=== PATIENT | female | born 1950 | race Caucasian/White ===

== ENCOUNTER 2021-03-17 18:25 | Emergency (ER) | payer MEDICARE ==
[~2021-03-17] VITALS: Ht 157.5 cm; Wt 92.1 kg
[2021-03-17 19:38] LABS: CLARITY,URINE CLEAR (CLEAR); COLOR,URINE YELLOW (YELLOW); KETONES,URINE NEGATIVE (NEGATIVE); LEUKOCYTE ESTERASE ,URINE NEGATIVE (NEGATIVE); NITRITE,URINE NEGATIVE (NEGATIVE); PROTEIN,URINE DIPSTICK NEGATIVE (NEGATIVE); URINE UROBILINOGEN 0.2 mg/dL (0.2 - 1)
[2021-03-17 19:49] LABS: BASOPHILS # (AUTO) 0.1 (0.0-0.1); BASOPHILS % 0.8 % (0.0-1.0); EOSINOPHILS # (AUTO) 0.1 (0.0-0.4); EOSINOPHILS % 1.7 % (0.0-6.0); HEMATOCRIT 45.5 % (34.2-44.1); HEMOGLOBIN 14.1 g/dL (12.0-16.0); LYMPHOCYTES # (AUTO) 1.6 (1.0-3.2); MEAN CORPUSCULAR HEMOGLOBIN 25.8 pg (28-32); MEAN CORPUSCULAR VOLUME 83.3 fL (81-99); MONOCYTES % 15.6 % (4.4-11.3); NEUTROPHILS # (AUTO) 3.7 (2.1-6.9); NEUTROPHILS % 56.6 % (38.7-80.0); PLATELET COUNT 234 x10e3/uL (140-360); RED BLOOD COUNT 5.46 x10e6/uL (3.6-5.1); RED CELL DISTRIBUTION WIDTH 16.7 % (11.7-14.4)
[2021-03-17 19:58] LABS: BACTERIA,URINE RARE /HPF; EPITHELIAL CELLS,URINE RARE /LPF; RBC,URINE 0-5 /HPF (0-5); WBC,URINE (MAN) 0-5 /HPF (0-5)
[2021-03-17 20:00] LABS: INR 1.59; PARTIAL THROMBOPLASTIN TIME 34.6 seconds (23.8-35.5); PROTHROMBIN TIME 19.7 seconds (11.9-14.5)
[2021-03-17] MEDS ORDERED: METOPROLOL TARTRATE INJ 1 MG/ML VIAL IV NR (20:00)
[2021-03-17 20:07] LABS: ALBUMIN 3.5 g/dL (3.5-5.0); ALBUMIN/GLOBULIN RATIO 0.9 (0.8-2.0); CREATININE, SERUM 1.27 mg/dL (0.57-1.11)
[2021-03-17 20:47] LABS: FREE THYROXINE INDEX 2.7434 (1.4-3.8); THYROID STIMULATING HORMONE 2.886 uIU/mL (0.350-4.940)
[2021-03-17] MEDS ORDERED: DILTIAZEM HCL 5 MG/ML 5 ML VIAL IV STA (21:25)
== END 2021-03-17 22:40 | disposition home or self-care (01) ==
LOC: ER 18:48
DX: I48.91 Unspecified atrial fibrillation (principal); R94.31 Abnormal electrocardiogram [ECG] [EKG]; I10 Essential (primary) hypertension; E11.9 Type 2 diabetes mellitus without complications; E78.5 Hyperlipidemia, unspecified; I25.10 Atherosclerotic heart disease of native coronary artery without angina pectoris; Z86.73 Personal history of transient ischemic attack (TIA), and cerebral infarction without residual deficits; Z95.1 Presence of aortocoronary bypass graft
CPT/HCPCS: 36415; 71045; 80053; 81001; 82550; 82553; 83880; 84436; 84443; 84479; 84484; 85025; 85610; 85730; 93005; 99284; U0002

== ENCOUNTER 2021-08-17 08:05 | Inpatient (IN) | payer MEDICARE ==
[~2021-08-17] VITALS: Ht 157.5 cm; Wt 90.7 kg
[2021-08-17] MEDS ORDERED: DILTIAZEM HCL 180 MG CAP ER PO STA (08:34)
[2021-08-17] MEDS ORDERED: METOPROLOL TARTRATE 50 MG TAB PO ONE (08:45)
[2021-08-17] MEDS ORDERED: HYDROCODONE/APAP 5MG-325MG TAB PO ONE (09:30)
[2021-08-17] MEDS ORDERED: SODIUM CHLORIDE 0.9% 1000ML 1,000 ML IV SCH ×2 (10:30→11:45)
[2021-08-17] MEDS ORDERED: ADENOSINE 6 MG/2 ML VIAL IV ONE (10:30)
[2021-08-17 11:07] LABS: BASOPHILS # (AUTO) 0.1 (0.0-0.1); BASOPHILS % 0.5 % (0.0-1.0); EOSINOPHILS # (AUTO) 0.2 (0.0-0.4); EOSINOPHILS % 1.4 % (0.0-6.0); HEMATOCRIT 47.7 % (34.2-44.1); LYMPHOCYTES % 16.1 % (18.0-39.1); MEAN CORPUSCULAR HEMOGLOBIN 27.7 pg (28-32); MEAN CORPUSCULAR HGB CONC 31.4 g/dL (31-35); MEAN CORPUSCULAR VOLUME 88.2 fL (81-99); MONOCYTES # (AUTO) 1.5 (0.2-0.8); MONOCYTES % 11.9 % (4.4-11.3); NEUTROPHILS # (AUTO) 8.5 (2.1-6.9); NEUTROPHILS % 69.6 % (38.7-80.0); PLATELET COUNT 200 x10e3/uL (140-360); RED BLOOD COUNT 5.41 x10e6/uL (3.6-5.1); RED CELL DISTRIBUTION WIDTH 19.9 % (11.7-14.4)
[2021-08-17] MEDS ORDERED: ADENOSINE 6MG/2ML 0 ML ONE (11:11)
[2021-08-17] MEDS ORDERED: DILTIAZEM HCL IV 5MG/ML 25 ML VIAL ONE (11:12)
[2021-08-17] MEDS ORDERED: DILTIAZEM HCL 5 MG/ML 5 ML VIAL IV ONE (11:15)
[2021-08-17 11:25] LABS: INR 2.3; PROTHROMBIN TIME 27.1 seconds (11.9-14.5)
[2021-08-17 11:35] LABS: ALBUMIN 3.3 g/dL (3.5-5.0); ALBUMIN/GLOBULIN RATIO 0.8 (0.8-2.0); ANION GAP 18.2 mmol/L (8-16); CALCIUM 9.5 mg/dL (8.4-10.2); CREATININE, SERUM 1.28 mg/dL (0.57-1.11); POTASSIUM 4.2 mmol/L (3.5-5.1)
[2021-08-17] MEDS ORDERED: SENNA LAX8.6 MG PO (11:57)
[2021-08-17] MEDS ORDERED: ASPIRIN81 MG PO (11:57)
[2021-08-17] MEDS ORDERED: PATANASE30.5 GM OU (11:57)
[2021-08-17] MEDS ORDERED: CITRACAL-D3 MA1 EACH PO (11:57)
[2021-08-17] MEDS ORDERED: LIPITOR20 MG PO (11:57)
[2021-08-17] MEDS ORDERED: JARDIANCE10 MG PO (11:57)
[2021-08-17] MEDS ORDERED: WARFARIN SODIU2.5 MG PO (11:57)
[2021-08-17] MEDS ORDERED: BENAZEPRIL HCL10 MG PO (11:57)
[2021-08-17] MEDS ORDERED: CYMBALTA30 MG PO (11:57)
[2021-08-17] MEDS ORDERED: ARICEPT10 MG PO (11:57)
[2021-08-17] MEDS ORDERED: BASAGLAR K100 UNIT/1 SQ (11:57)
[2021-08-17] MEDS ORDERED: FLONASE ALLERG9.9 ML INH (11:57)
[2021-08-17] MEDS ORDERED: PANTOPRAZOLE SO40 MG PO (11:57)
[2021-08-17] MEDS ORDERED: DEPAKOTE ER500 MG PO (11:57)
[2021-08-17] MEDS ORDERED: NOVOLOG100 UNIT/1 SC (11:57)
[2021-08-17] MEDS ORDERED: METOPROLOL TART50 MG PO (11:57)
[2021-08-17] MEDS ORDERED: LASIX20 MG PO (11:57)
[2021-08-17] MEDS ORDERED: ATROVENT HFA12.9 GM INH (11:57)
[2021-08-17] MEDS ORDERED: DILTIAZEM 24HR180 MG PO (11:57)
[2021-08-17] MEDS ORDERED: LEVOTHYROXINE75 MCG PO (11:57)
[2021-08-17 12:37] VITALS: BP 130/58
[2021-08-17 13:17] VITALS: BP 141/86
[2021-08-17 15:03] VITALS: BP 141/86
[2021-08-17] MEDS: METOPROLOL TARTRATE 50 MG TAB PO SCH (16:37)
[2021-08-17] MEDS ORDERED: SENNOSIDES 8.6 MG TAB PO PRN (16:45)
[2021-08-17] MEDS ORDERED: DEXTROSE 50% SYRINGE 50 ML IV PRN (16:45)
[2021-08-17] MEDS ORDERED: METOPROLOL TARTRATE 50 MG TAB PO SCH (17:00)
[2021-08-17 17:03] VITALS: BP 152/91
[2021-08-17] MEDS ORDERED: DIGOXIN INJ 0.25 MG/ML 2 ML AMP IV ONE (17:15)
[2021-08-17] MEDS: Morphine 4mg Syringe 4 MG/ML INJ IV PRN (17:50)
[2021-08-17] MEDS: ONDANSETRON HCL INJ 2MG/ML 2ML 2 MG/ML VIAL IV PRN (17:50)
[2021-08-17] MEDS: DEPAKOTE DELAYED-RELEASE TAB 500 MG PO SCH (17:52)
[2021-08-17 20:17] VITALS: BP 127/90
[2021-08-17] MEDS: ATORVASTATIN 40 MG TAB PO SCH (20:37)
[2021-08-17] MEDS: DONEPEZIL HCL 5 MG TAB PO SCH (20:37)
[2021-08-17] MEDS: INSULIN GLARGINE 100 UNITS/ML VIAL SQ SCH (20:39)
[2021-08-17] MEDS: INSULIN LISPRO 100 UNIT/1 ML 3ML VIAL SQ SCH ×2 (20:39→20:40)
[2021-08-17 21:00] VITALS: BP 127/90
[2021-08-18] VITALS (8 sets, daily range): BP systolic 128–157; BP diastolic 87–118
[2021-08-18] MEDS: METOPROLOL TARTRATE 50 MG TAB PO SCH ×5 (03:49→17:14)
[2021-08-18] MEDS: LEVOTHYROXINE SODIUM 75 MCG TAB PO SCH (04:58)
[2021-08-18 06:06] LABS: BASOPHILS % 0.3 % (0.0-1.0); EOSINOPHILS # (AUTO) 0.3 (0.0-0.4); EOSINOPHILS % 2.1 % (0.0-6.0); HEMATOCRIT 44.6 % (34.2-44.1); HEMOGLOBIN 14.2 g/dL (12.0-16.0); LYMPHOCYTES # (AUTO) 1.9 (1.0-3.2); LYMPHOCYTES % 15.6 % (18.0-39.1); MEAN CORPUSCULAR HEMOGLOBIN 27.7 pg (28-32); MEAN CORPUSCULAR HGB CONC 31.8 g/dL (31-35); MEAN CORPUSCULAR VOLUME 86.9 fL (81-99); MONOCYTES # (AUTO) 1.5 (0.2-0.8); MONOCYTES % 11.7 % (4.4-11.3); NEUTROPHILS # (AUTO) 8.7 (2.1-6.9); NEUTROPHILS % 69.6 % (38.7-80.0); PLATELET COUNT 210 x10e3/uL (140-360); RED BLOOD COUNT 5.13 x10e6/uL (3.6-5.1); RED CELL DISTRIBUTION WIDTH 19.9 % (11.7-14.4)
[2021-08-18 06:09] LABS: CALCIUM 8.9 mg/dL (8.4-10.2); CREATININE, SERUM 1.14 mg/dL (0.57-1.11); INR 2.3; PROTHROMBIN TIME 27.1 seconds (11.9-14.5)
[2021-08-18] MEDS: INSULIN LISPRO 100 UNIT/1 ML 3ML VIAL SQ SCH ×8 (07:30→20:44)
[2021-08-18] MEDS: ASPIRIN 81 MG CHEW TAB PO SCH (08:09)
[2021-08-18] MEDS: DULOXETINE HCL 30 MG DELAYED RELEASE PO SCH (08:09)
[2021-08-18] MEDS: PANTOPRAZOLE SOD 40 MG TABEC PO SCH (08:10)
[2021-08-18] MEDS: FUROSEMIDE 20 MG TAB PO SCH (08:10)
[2021-08-18] MEDS: DEPAKOTE DELAYED-RELEASE TAB 500 MG PO SCH ×2 (08:11→16:17)
[2021-08-18] MEDS: DILTIAZEM HCL 180 MG CAP ER PO SCH (08:23)
[2021-08-18] MEDS: WARFARIN SOD 2 MG TAB PO SCH (16:17)
[2021-08-18] MEDS: ONDANSETRON HCL INJ 2MG/ML 2ML 2 MG/ML VIAL IV PRN (20:00)
[2021-08-18] MEDS: Morphine 4mg Syringe 4 MG/ML INJ IV PRN (20:00)
[2021-08-18] MEDS: ATORVASTATIN 40 MG TAB PO SCH (20:44)
[2021-08-18] MEDS: DONEPEZIL HCL 5 MG TAB PO SCH (20:44)
[2021-08-18] MEDS ORDERED: TRAMADOL HCL 50 MG TAB PO PRN (20:45)
[2021-08-18] MEDS: INSULIN GLARGINE 100 UNITS/ML VIAL SQ SCH (20:45)
[2021-08-19] VITALS (9 sets, daily range): BP systolic 95–140; BP diastolic 64–92
[2021-08-19] MEDS: METOPROLOL TARTRATE 50 MG TAB PO SCH ×4 (00:25→17:16)
[2021-08-19 05:03] LABS: BASOPHILS % 0.4 % (0.0-1.0); EOSINOPHILS # (AUTO) 0.4 (0.0-0.4); EOSINOPHILS % 3.8 % (0.0-6.0); HEMOGLOBIN 13.9 g/dL (12.0-16.0); LYMPHOCYTES # (AUTO) 2.6 (1.0-3.2); LYMPHOCYTES % 27.9 % (18.0-39.1); MEAN CORPUSCULAR HEMOGLOBIN 28.1 pg (28-32); MEAN CORPUSCULAR HGB CONC 31.6 g/dL (31-35); MEAN CORPUSCULAR VOLUME 89.1 fL (81-99); MONOCYTES # (AUTO) 1.3 (0.2-0.8); MONOCYTES % 14.1 % (4.4-11.3); NEUTROPHILS # (AUTO) 4.9 (2.1-6.9); NEUTROPHILS % 53.4 % (38.7-80.0); PLATELET COUNT 181 x10e3/uL (140-360); RED BLOOD COUNT 4.94 x10e6/uL (3.6-5.1); RED CELL DISTRIBUTION WIDTH 19.6 % (11.7-14.4)
[2021-08-19 05:16] LABS: INR 1.69; PROTHROMBIN TIME 21.2 seconds (11.9-14.5)
[2021-08-19 05:23] LABS: ANION GAP 13.9 mmol/L (8-16); CALCIUM 9.2 mg/dL (8.4-10.2); CREATININE, SERUM 0.99 mg/dL (0.57-1.11); POTASSIUM 3.9 mmol/L (3.5-5.1)
[2021-08-19] MEDS: LEVOTHYROXINE SODIUM 75 MCG TAB PO SCH (05:47)
[2021-08-19] MEDS: INSULIN LISPRO 100 UNIT/1 ML 3ML VIAL SQ SCH ×8 (07:30→21:41)
[2021-08-19] MEDS: ASPIRIN 81 MG CHEW TAB PO SCH (08:44)
[2021-08-19] MEDS: FUROSEMIDE 20 MG TAB PO SCH (08:45)
[2021-08-19] MEDS: DILTIAZEM HCL 180 MG CAP ER PO SCH (08:45)
[2021-08-19] MEDS: DEPAKOTE DELAYED-RELEASE TAB 500 MG PO SCH ×2 (08:45→16:21)
[2021-08-19] MEDS: DULOXETINE HCL 30 MG DELAYED RELEASE PO SCH (08:45)
[2021-08-19] MEDS: PANTOPRAZOLE SOD 40 MG TABEC PO SCH (08:45)
[2021-08-19] MEDS ORDERED: DIGOXIN INJ 0.25 MG/ML 2 ML AMP IV ONE (09:15)
[2021-08-19] MEDS: WARFARIN SOD 2 MG TAB PO SCH (16:21)
[2021-08-19] MEDS: DONEPEZIL HCL 5 MG TAB PO SCH (21:38)
[2021-08-19] MEDS: ATORVASTATIN 40 MG TAB PO SCH (21:38)
[2021-08-19] MEDS: INSULIN GLARGINE 100 UNITS/ML VIAL SQ SCH (21:42)
[2021-08-20] VITALS (7 sets, daily range): BP systolic 121–145; BP diastolic 50–90
[2021-08-20] MEDS: METOPROLOL TARTRATE 50 MG TAB PO SCH ×4 (00:04→16:21)
[2021-08-20] MEDS: LEVOTHYROXINE SODIUM 75 MCG TAB PO SCH (06:25)
[2021-08-20 06:42] LABS: INR 1.16; PROTHROMBIN TIME 15.8 seconds (11.9-14.5)
[2021-08-20] MEDS: INSULIN LISPRO 100 UNIT/1 ML 3ML VIAL SQ SCH ×8 (07:30→20:53)
[2021-08-20] MEDS: DILTIAZEM HCL 180 MG CAP ER PO SCH (08:40)
[2021-08-20] MEDS: ASPIRIN 81 MG CHEW TAB PO SCH (08:40)
[2021-08-20] MEDS: PANTOPRAZOLE SOD 40 MG TABEC PO SCH (08:40)
[2021-08-20] MEDS: DIGOXIN 0.125 MG TAB PO SCH (08:40)
[2021-08-20] MEDS: FUROSEMIDE 20 MG TAB PO SCH (08:40)
[2021-08-20] MEDS: DEPAKOTE DELAYED-RELEASE TAB 500 MG PO SCH ×2 (08:40→16:59)
[2021-08-20] MEDS: DULOXETINE HCL 30 MG DELAYED RELEASE PO SCH (08:40)
[2021-08-20] MEDS ORDERED: ENOXAPARIN SODIUM INJ 100 MG/ML SYR SC ONE (09:00)
[2021-08-20] MEDS: WARFARIN SOD 3 MG TAB PO SCH (16:59)
[2021-08-20] MEDS: DONEPEZIL HCL 5 MG TAB PO SCH (20:51)
[2021-08-20] MEDS: ATORVASTATIN 40 MG TAB PO SCH (20:51)
[2021-08-20] MEDS: INSULIN GLARGINE 100 UNITS/ML VIAL SQ SCH (20:53)
[2021-08-21] VITALS (8 sets, daily range): BP systolic 123–164; BP diastolic 53–76
[2021-08-21] MEDS: METOPROLOL TARTRATE 50 MG TAB PO SCH ×4 (00:59→18:23)
[2021-08-21] MEDS: LEVOTHYROXINE SODIUM 75 MCG TAB PO SCH (06:16)
[2021-08-21] MEDS: INSULIN LISPRO 100 UNIT/1 ML 3ML VIAL SQ SCH ×8 (07:30→20:22)
[2021-08-21] MEDS: ASPIRIN 81 MG CHEW TAB PO SCH (09:48)
[2021-08-21] MEDS: DILTIAZEM HCL 180 MG CAP ER PO SCH (09:49)
[2021-08-21] MEDS: DEPAKOTE DELAYED-RELEASE TAB 500 MG PO SCH ×2 (09:50→16:43)
[2021-08-21] MEDS: DULOXETINE HCL 30 MG DELAYED RELEASE PO SCH (09:50)
[2021-08-21] MEDS: PANTOPRAZOLE SOD 40 MG TABEC PO SCH (09:51)
[2021-08-21] MEDS: DIGOXIN 0.125 MG TAB PO SCH (09:51)
[2021-08-21] MEDS: ENOXAPARIN INJ 80 MG/0.8 ML SYR SC SCH ×2 (09:51→20:21)
[2021-08-21] MEDS: FUROSEMIDE 20 MG TAB PO SCH (09:51)
[2021-08-21] MEDS ORDERED: ONDANSETRON HCL 4 MG ORAL DISINTEGRATING TAB PO PRN (13:15)
[2021-08-21] MEDS: WARFARIN SOD 3 MG TAB PO SCH (16:43)
[2021-08-21] MEDS ORDERED: METOPROLOL TART50 MG PO (18:15)
[2021-08-21] MEDS ORDERED: Warfarin Sod PO (18:15)
[2021-08-21] MEDS ORDERED: DIGOXIN125 MCG PO (18:15)
[2021-08-21] MEDS ORDERED: ULTRAM 50MG50 MG PO (18:15)
[2021-08-21] MEDS: ATORVASTATIN 40 MG TAB PO SCH (20:21)
[2021-08-21] MEDS: DONEPEZIL HCL 5 MG TAB PO SCH (20:21)
[2021-08-21] MEDS: INSULIN GLARGINE 100 UNITS/ML VIAL SQ SCH (20:22)
== END 2021-08-21 20:35 | DRG 563 ==
LOC: ER 08:14 → ERHOLD 11:52 → MED/SURG 12:24 → OBSVTOIN 19:16
PROVIDERS: ADMIT Internal Medicine; ATTEND Internal Medicine
DX: S82.891A Other fracture of right lower leg, initial encounter for closed fracture (principal); I48.4 Atypical atrial flutter; I69.351 Hemiplegia and hemiparesis following cerebral infarction affecting right dominant side; D68.51 Activated protein C resistance; I48.91 Unspecified atrial fibrillation; Z79.01 Long term (current) use of anticoagulants; E11.9 Type 2 diabetes mellitus without complications; Z95.2 Presence of prosthetic heart valve; R26.9 Unspecified abnormalities of gait and mobility; Z99.3 Dependence on wheelchair; W18.2XXA Fall in (into) shower or empty bathtub, initial encounter; Z91.81 History of falling; Y93.9 Activity, unspecified; Y92.002 Bathroom of unspecified non-institutional (private) residence as the place of occurrence of the external cause; Z20.822 Contact with and (suspected) exposure to COVID-19
CPT/HCPCS: 36415; 70450; 72125; 80048; 80053; 82948; 83880; 84443; 84484; 85025; 85610; 93005; 93306; 94799; 97139; 99285; J0153; J1160; J1650; J1815; J2270; J2405; J7030; U0002

== ENCOUNTER 2022-01-13 13:09 | Inpatient (IN) | payer MEDICARE ==
[~2022-01-13] VITALS: Ht 157.5 cm; Wt 79.8 kg
[~2022-01-13 13:09] MED LIST: ARICEPT10 MG PO; ASPIRIN81 MG PO; ATROVENT HFA12.9 GM INH; BASAGLAR K100 UNIT/1 SQ; BENAZEPRIL HCL10 MG PO; CITRACAL-D3 MA1 EACH PO; CYMBALTA30 MG PO; DEPAKOTE ER500 MG PO; DIGOXIN125 MCG PO; DILTIAZEM 24HR180 MG PO; FLONASE ALLERG9.9 ML INH; JARDIANCE10 MG PO; LASIX20 MG PO; LEVOTHYROXINE75 MCG PO; LIPITOR20 MG PO; METOPROLOL TART50 MG PO; NOVOLOG100 UNIT/1 SC; PANTOPRAZOLE SO40 MG PO; PATANASE30.5 GM OU; SENNA LAX8.6 MG PO; ULTRAM 50MG50 MG PO; WARFARIN SODIU2.5 MG PO; Warfarin Sod PO
[2022-01-13 13:29] LABS: BASOPHILS # (AUTO) 0.1 (0.0-0.1); BASOPHILS % 0.5 % (0.0-1.0); EOSINOPHILS # (AUTO) 0.2 (0.0-0.4); EOSINOPHILS % 1.6 % (0.0-6.0); HEMATOCRIT 43.4 % (34.2-44.1); HEMOGLOBIN 14.3 g/dL (12.0-16.0); LYMPHOCYTES # (AUTO) 2.6 (1.0-3.2); LYMPHOCYTES % 25.4 % (18.0-39.1); MEAN CORPUSCULAR HEMOGLOBIN 32.9 pg (28-32); MEAN CORPUSCULAR HGB CONC 32.9 g/dL (31-35); MEAN CORPUSCULAR VOLUME 99.8 fL (81-99); MONOCYTES # (AUTO) 1.2 (0.2-0.8); MONOCYTES % 11.4 % (4.4-11.3); NEUTROPHILS # (AUTO) 6.3 (2.1-6.9); NEUTROPHILS % 60.5 % (38.7-80.0); PLATELET COUNT 207 x10e3/uL (140-360); RED BLOOD COUNT 4.35 x10e6/uL (3.6-5.1); RED CELL DISTRIBUTION WIDTH 16.2 % (11.7-14.4)
[2022-01-13 13:42] LABS: INR 1.67
[2022-01-13 13:43] LABS: PARTIAL THROMBOPLASTIN TIME 27.5 seconds (23.8-35.5)
[2022-01-13 15:01] LABS: ALBUMIN 2.7 g/dL (3.5-5.0); ALBUMIN/GLOBULIN RATIO 0.7 (0.8-2.0); CALCIUM 8.5 mg/dL (8.4-10.2); CREATININE, SERUM 0.95 mg/dL (0.57-1.11)
[2022-01-13 15:07] LABS: CREATINE KINASE MB 3.3 ng/mL (0-5.0)
[2022-01-13] MEDS ORDERED: BENAZEPRIL HCL10 MG PO (15:24)
[2022-01-13] MEDS ORDERED: SODIUM CHLORIDE 0.9% 1000ML 1,000 ML IV SCH (15:30)
[2022-01-13] MEDS ORDERED: JARDIANCE10 MG PO (15:30)
[2022-01-13 17:42] VITALS: BP 144/97
[2022-01-13 17:54] VITALS: BP 144/97
[2022-01-13] MEDS ORDERED: METOPROLOL SUCCINATE 50 MG TAB XL PO SCH ×2 (18:15→18:45)
[2022-01-13] MEDS ORDERED: ONDANSETRON HCL INJ 2MG/ML 2ML 2 MG/ML VIAL IV PRN (18:15)
[2022-01-13] MEDS ORDERED: ACETAMINOPHEN 325 MG TAB PO PRN (18:15)
[2022-01-13] MEDS ORDERED: WARFARIN SOD 2 MG TAB PO SCH (18:45)
[2022-01-13] MEDS ORDERED: ENOXAPARIN INJ 80 MG/0.8 ML SYR SC ONE (18:45)
[2022-01-13 20:00] VITALS: BP 120/53
[2022-01-13] MEDS: INSULIN LISPRO 100 UNIT/1 ML 3ML VIAL SQ SCH (21:00)
[2022-01-13] MEDS ORDERED: SENNOSIDES 8.6 MG TAB PO PRN (21:45)
[2022-01-13] MEDS ORDERED: DEXTROSE 50% SYRINGE 50 ML IV PRN (22:00)
[2022-01-13] MEDS ORDERED: DILTIAZEM HCL 5 MG/ML 5 ML VIAL IV PRN (22:00)
[2022-01-14] VITALS (7 sets, daily range): BP systolic 107–142; BP diastolic 51–68
[2022-01-14] MEDS: LEVOTHYROXINE SODIUM 75 MCG TAB PO SCH (06:32)
[2022-01-14] MEDS: INSULIN REGULAR, HUMAN 100 UNIT/1 ML SQ SCH ×4 (07:30→22:16)
[2022-01-14] MEDS: INSULIN LISPRO 100 UNIT/1 ML 3ML VIAL SQ SCH (07:30)
[2022-01-14 08:44] LABS: BASOPHILS % 0.5 % (0.0-1.0); EOSINOPHILS # (AUTO) 0.3 (0.0-0.4); EOSINOPHILS % 4.1 % (0.0-6.0); HEMATOCRIT 44.5 % (34.2-44.1); HEMOGLOBIN 14.5 g/dL (12.0-16.0); LYMPHOCYTES # (AUTO) 2.3 (1.0-3.2); MEAN CORPUSCULAR HEMOGLOBIN 32.4 pg (28-32); MEAN CORPUSCULAR HGB CONC 32.6 g/dL (31-35); MEAN CORPUSCULAR VOLUME 99.6 fL (81-99); MONOCYTES # (AUTO) 0.8 (0.2-0.8); MONOCYTES % 11.2 % (4.4-11.3); NEUTROPHILS # (AUTO) 4.1 (2.1-6.9); NEUTROPHILS % 53.9 % (38.7-80.0); PLATELET COUNT 217 x10e3/uL (140-360); RED BLOOD COUNT 4.47 x10e6/uL (3.6-5.1)
[2022-01-14] MEDS: DULOXETINE HCL 30 MG DELAYED RELEASE PO SCH (09:00)
[2022-01-14] MEDS ORDERED: METOPROLOL SUCCINATE 50 MG TAB XL PO SCH ×2 (09:00→10:15)
[2022-01-14] MEDS: DILTIAZEM HCL 180 MG CAP ER PO SCH (09:00)
[2022-01-14] MEDS: BENAZEPRIL HCL 10 MG TAB PO SCH (09:00)
[2022-01-14] MEDS: FUROSEMIDE 20 MG TAB PO SCH (09:00)
[2022-01-14] MEDS: ASPIRIN 81 MG CHEW TAB PO SCH (09:00)
[2022-01-14] MEDS: DIGOXIN 0.125 MG TAB PO SCH (09:00)
[2022-01-14 09:02] LABS: INR 1.92; PROTHROMBIN TIME 23.5 seconds (11.9-14.5)
[2022-01-14 09:17] LABS: CALCIUM 8.7 mg/dL (8.4-10.2); CREATININE, SERUM 0.81 mg/dL (0.57-1.11)
[2022-01-14] MEDS ORDERED: ENOXAPARIN INJ 80 MG/0.8 ML SYR SC ONE (10:45)
[2022-01-14] MEDS ORDERED: GENTAMICIN 120MG/NS 100ML 200 ML IV STA (16:14)
[2022-01-14] MEDS ORDERED: SODIUM CHLORIDE 0.9% 1000ML 3,000 ML ONE (16:20)
[2022-01-14] MEDS ORDERED: Vancomycin IV 1 GM VIAL ONE ×2 (16:22→16:50)
[2022-01-14] MEDS ORDERED: MIDAZOLAM HCL 2 MG/2 ML VIAL ONE ×3 (16:29→17:22)
[2022-01-14] MEDS ORDERED: FENTANYL CITRATE/PF 100MCG/2 ML INJ ONE (16:30)
[2022-01-14] MEDS ORDERED: SODIUM CHLORIDE 0.9% 100 ML ONE (16:30)
[2022-01-14] MEDS: METOPROLOL SUCCINATE 50 MG TAB XL PO SCH (21:00)
[2022-01-14] MEDS ORDERED: ENOXAPARIN INJ 80 MG/0.8 ML SYR SC SCH (21:00)
[2022-01-14] MEDS: DONEPEZIL HCL 5 MG TAB PO SCH (22:21)
[2022-01-14] MEDS: ATORVASTATIN 40 MG TAB PO SCH (22:21)
[2022-01-15] VITALS (8 sets, daily range): BP systolic 107–142; BP diastolic 33–83
[2022-01-15] MEDS: Vancomycin IV 1 GM in SODIUM CHLORIDE 0.9% 250ML 250 ML IV SCH ×2 (02:54→16:00)
[2022-01-15] MEDS: LEVOTHYROXINE SODIUM 75 MCG TAB PO SCH (06:09)
[2022-01-15 07:14] LABS: BASOPHILS # (AUTO) 0.1 (0.0-0.1); BASOPHILS % 0.5 % (0.0-1.0); EOSINOPHILS # (AUTO) 0.3 (0.0-0.4); EOSINOPHILS % 3.1 % (0.0-6.0); HEMATOCRIT 43.8 % (34.2-44.1); HEMOGLOBIN 14.1 g/dL (12.0-16.0); LYMPHOCYTES # (AUTO) 2.1 (1.0-3.2); LYMPHOCYTES % 22.9 % (18.0-39.1); MEAN CORPUSCULAR HEMOGLOBIN 32.6 pg (28-32); MEAN CORPUSCULAR HGB CONC 32.2 g/dL (31-35); MEAN CORPUSCULAR VOLUME 101.2 fL (81-99); MONOCYTES # (AUTO) 1.2 (0.2-0.8); MONOCYTES % 13.4 % (4.4-11.3); NEUTROPHILS # (AUTO) 5.5 (2.1-6.9); NEUTROPHILS % 59.6 % (38.7-80.0); PLATELET COUNT 211 x10e3/uL (140-360); RED BLOOD COUNT 4.33 x10e6/uL (3.6-5.1); RED CELL DISTRIBUTION WIDTH 16.5 % (11.7-14.4)
[2022-01-15] MEDS: DILTIAZEM HCL 180 MG CAP ER PO SCH (08:39)
[2022-01-15] MEDS: FUROSEMIDE 20 MG TAB PO SCH (08:40)
[2022-01-15] MEDS: DIGOXIN 0.125 MG TAB PO SCH (08:40)
[2022-01-15] MEDS: BENAZEPRIL HCL 10 MG TAB PO SCH (08:40)
[2022-01-15] MEDS: DULOXETINE HCL 30 MG DELAYED RELEASE PO SCH (08:40)
[2022-01-15] MEDS: METOPROLOL SUCCINATE 50 MG TAB XL PO SCH ×2 (08:41→21:00)
[2022-01-15] MEDS: ASPIRIN 81 MG CHEW TAB PO SCH (08:42)
[2022-01-15 08:47] LABS: INR 1.69; PROTHROMBIN TIME 21.2 seconds (11.9-14.5)
[2022-01-15] MEDS ORDERED: ONDANSETRON HCL 4 MG ORAL DISINTEGRATING TAB PO PRN (09:30)
[2022-01-15] MEDS: INSULIN REGULAR, HUMAN 100 UNIT/1 ML SQ SCH ×4 (10:05→21:47)
[2022-01-15] MEDS: ATORVASTATIN 40 MG TAB PO SCH (21:47)
[2022-01-15] MEDS: DONEPEZIL HCL 5 MG TAB PO SCH (21:47)
[2022-01-15] MEDS: WARFARIN SOD 2 MG TAB PO SCH (22:02)
[2022-01-16] VITALS (8 sets, daily range): BP systolic 120–157; BP diastolic 43–85
[2022-01-16] MEDS: LEVOTHYROXINE SODIUM 75 MCG TAB PO SCH (06:03)
[2022-01-16 07:50] LABS: BASOPHILS # (AUTO) 0.1 (0.0-0.1); BASOPHILS % 0.6 % (0.0-1.0); EOSINOPHILS # (AUTO) 0.2 (0.0-0.4); EOSINOPHILS % 1.9 % (0.0-6.0); HEMATOCRIT 51.4 % (34.2-44.1); HEMOGLOBIN 16.9 g/dL (12.0-16.0); LYMPHOCYTES # (AUTO) 1.8 (1.0-3.2); LYMPHOCYTES % 16.5 % (18.0-39.1); MEAN CORPUSCULAR HEMOGLOBIN 33.1 pg (28-32); MEAN CORPUSCULAR HGB CONC 32.9 g/dL (31-35); MEAN CORPUSCULAR VOLUME 100.8 fL (81-99); MONOCYTES # (AUTO) 0.9 (0.2-0.8); MONOCYTES % 8.3 % (4.4-11.3); NEUTROPHILS # (AUTO) 7.8 (2.1-6.9); NEUTROPHILS % 72.3 % (38.7-80.0); PLATELET COUNT 185 x10e3/uL (140-360); RED CELL DISTRIBUTION WIDTH 15.9 % (11.7-14.4)
[2022-01-16 08:10] LABS: INR 1.18
[2022-01-16 08:14] LABS: ALBUMIN 2.8 g/dL (3.5-5.0); ALBUMIN/GLOBULIN RATIO 0.6 (0.8-2.0); CALCIUM 9.2 mg/dL (8.4-10.2); CREATININE, SERUM 0.76 mg/dL (0.57-1.11)
[2022-01-16 08:33] LABS: THYROID STIMULATING HORMONE 4.717 uIU/mL (0.350-4.940)
[2022-01-16] MEDS: DULOXETINE HCL 30 MG DELAYED RELEASE PO SCH (08:37)
[2022-01-16] MEDS: FUROSEMIDE 20 MG TAB PO SCH (08:37)
[2022-01-16] MEDS: ASPIRIN 81 MG CHEW TAB PO SCH (08:37)
[2022-01-16] MEDS: DIGOXIN 0.125 MG TAB PO SCH (08:37)
[2022-01-16] MEDS: BENAZEPRIL HCL 10 MG TAB PO SCH (08:38)
[2022-01-16] MEDS: METOPROLOL SUCCINATE 50 MG TAB XL PO SCH ×2 (08:41→21:22)
[2022-01-16] MEDS: INSULIN REGULAR, HUMAN 100 UNIT/1 ML SQ SCH ×4 (08:42→21:24)
[2022-01-16] MEDS: WARFARIN SOD 2 MG TAB PO SCH (16:47)
[2022-01-16] MEDS: DONEPEZIL HCL 5 MG TAB PO SCH (21:21)
[2022-01-16] MEDS: ATORVASTATIN 40 MG TAB PO SCH (21:21)
[2022-01-16] MEDS ORDERED: ACETAMINOPHEN/CODEINE 300MG - 30MG TAB PO PRN (22:15)
[2022-01-17] VITALS (7 sets, daily range): BP systolic 87–134; BP diastolic 35–67
[2022-01-17 05:42] LABS: INR 1.22; PROTHROMBIN TIME 16.5 seconds (11.9-14.5)
[2022-01-17] MEDS: LEVOTHYROXINE SODIUM 75 MCG TAB PO SCH (06:24)
[2022-01-17] MEDS: INSULIN REGULAR, HUMAN 100 UNIT/1 ML SQ SCH ×4 (08:30→20:30)
[2022-01-17] MEDS: BENAZEPRIL HCL 10 MG TAB PO SCH (09:39)
[2022-01-17] MEDS: METOPROLOL SUCCINATE 50 MG TAB XL PO SCH ×2 (09:39→20:30)
[2022-01-17] MEDS: DIGOXIN 0.125 MG TAB PO SCH (09:40)
[2022-01-17] MEDS: FUROSEMIDE 20 MG TAB PO SCH (09:40)
[2022-01-17] MEDS: ASPIRIN 81 MG CHEW TAB PO SCH (09:41)
[2022-01-17] MEDS: DULOXETINE HCL 30 MG DELAYED RELEASE PO SCH (09:41)
[2022-01-17] MEDS: WARFARIN SOD 2 MG TAB PO SCH (16:38)
[2022-01-17] MEDS: DONEPEZIL HCL 5 MG TAB PO SCH (20:30)
[2022-01-17] MEDS: ATORVASTATIN 40 MG TAB PO SCH (20:30)
[2022-01-18] VITALS: BP 134/50
[2022-01-18 04:00] VITALS: BP 120/51
[2022-01-18 05:43] LABS: BASOPHILS # (AUTO) 0.1 (0.0-0.1); BASOPHILS % 0.5 % (0.0-1.0); EOSINOPHILS # (AUTO) 0.2 (0.0-0.4); EOSINOPHILS % 2.4 % (0.0-6.0); HEMOGLOBIN 14.7 g/dL (12.0-16.0); LYMPHOCYTES # (AUTO) 2.1 (1.0-3.2); LYMPHOCYTES % 22.4 % (18.0-39.1); MEAN CORPUSCULAR HEMOGLOBIN 32.5 pg (28-32); MEAN CORPUSCULAR HGB CONC 32.7 g/dL (31-35); MEAN CORPUSCULAR VOLUME 99.3 fL (81-99); MONOCYTES # (AUTO) 1.1 (0.2-0.8); MONOCYTES % 11.6 % (4.4-11.3); NEUTROPHILS # (AUTO) 5.8 (2.1-6.9); NEUTROPHILS % 62.7 % (38.7-80.0); PLATELET COUNT 206 x10e3/uL (140-360); RED BLOOD COUNT 4.53 x10e6/uL (3.6-5.1)
[2022-01-18 05:59] LABS: INR 1.29; PROTHROMBIN TIME 17.2 seconds (11.9-14.5)
[2022-01-18] MEDS: LEVOTHYROXINE SODIUM 75 MCG TAB PO SCH (06:00)
[2022-01-18 06:09] LABS: ANION GAP 12.7 mmol/L (8-16); CALCIUM 8.9 mg/dL (8.4-10.2); CREATININE, SERUM 0.74 mg/dL (0.57-1.11); POTASSIUM 3.7 mmol/L (3.5-5.1)
[2022-01-18] MEDS: INSULIN REGULAR, HUMAN 100 UNIT/1 ML SQ SCH ×4 (07:30→21:00)
[2022-01-18 08:15] VITALS: BP 115/51
[2022-01-18] MEDS: ASPIRIN 81 MG CHEW TAB PO SCH (09:00)
[2022-01-18] MEDS: FUROSEMIDE 20 MG TAB PO SCH (09:00)
[2022-01-18] MEDS: DULOXETINE HCL 30 MG DELAYED RELEASE PO SCH (09:00)
[2022-01-18] MEDS: BENAZEPRIL HCL 10 MG TAB PO SCH (09:00)
[2022-01-18] MEDS: DIGOXIN 0.125 MG TAB PO SCH (09:00)
[2022-01-18] MEDS: METOPROLOL SUCCINATE 50 MG TAB XL PO SCH (09:00)
[2022-01-18 12:00] VITALS: BP 140/50
[2022-01-18 16:57] VITALS: BP 132/56
[2022-01-18] MEDS: WARFARIN SOD 2 MG TAB PO SCH (17:00)
[2022-01-18 20:00] VITALS: BP 145/53
[2022-01-18] MEDS: ATORVASTATIN 40 MG TAB PO SCH (21:00)
[2022-01-18] MEDS: DONEPEZIL HCL 5 MG TAB PO SCH (21:00)
[2022-01-19] VITALS: BP 164/54
[2022-01-19 04:00] VITALS: BP 143/49
[2022-01-19] MEDS: METOPROLOL SUCCINATE 50 MG TAB XL PO SCH (06:00)
[2022-01-19] MEDS: LEVOTHYROXINE SODIUM 75 MCG TAB PO SCH (06:00)
[2022-01-19 06:06] LABS: INR 1.32; PROTHROMBIN TIME 17.5 seconds (11.9-14.5)
[2022-01-19 08:49] VITALS: BP 150/47
[2022-01-19] MEDS: ASPIRIN 81 MG CHEW TAB PO SCH (09:34)
[2022-01-19] MEDS: DIGOXIN 0.125 MG TAB PO SCH (09:34)
[2022-01-19] MEDS: DULOXETINE HCL 30 MG DELAYED RELEASE PO SCH (09:34)
[2022-01-19] MEDS: BENAZEPRIL HCL 10 MG TAB PO SCH (09:35)
[2022-01-19] MEDS: FUROSEMIDE 20 MG TAB PO SCH (09:35)
[2022-01-19] MEDS: INSULIN REGULAR, HUMAN 100 UNIT/1 ML SQ SCH ×3 (10:03→16:30)
[2022-01-19 11:59] VITALS: BP 136/36
[2022-01-19 15:53] VITALS: BP 108/53
[2022-01-19] MEDS ORDERED: WARFARIN SOD 5 MG TAB PO SCH (17:00)
== END 2022-01-19 17:40 | DRG 243 ==
LOC: ER 13:20 → ERHOLD 15:25 → MED/SURG 17:30 → OBSVTOIN 01-14 10:12
PROVIDERS: ADMIT Internal Medicine; ATTEND Internal Medicine
PROC: 0JH604Z Insertion of Pacemaker, Single Chamber into Chest Subcutaneous Tissue and Fascia, Open Approach (ICD-10-PCS; principal; 2022-01-14)
PROC: 02HK3JZ Insertion of Pacemaker Lead into Right Ventricle, Percutaneous Approach (ICD-10-PCS; 2022-01-14)
DX: I49.5 Sick sinus syndrome (principal); D68.51 Activated protein C resistance; I48.19 Other persistent atrial fibrillation; I10 Essential (primary) hypertension; E11.9 Type 2 diabetes mellitus without complications; I25.10 Atherosclerotic heart disease of native coronary artery without angina pectoris; E78.5 Hyperlipidemia, unspecified; I69.320 Aphasia following cerebral infarction; Z90.49 Acquired absence of other specified parts of digestive tract; Z95.1 Presence of aortocoronary bypass graft; Z88.0 Allergy status to penicillin; Z95.2 Presence of prosthetic heart valve; Z82.49 Family history of ischemic heart disease and other diseases of the circulatory system; Z20.822 Contact with and (suspected) exposure to COVID-19; F03.90 Unspecified dementia, unspecified severity, without behavioral disturbance, psychotic disturbance, mood disturbance, and anxiety; E03.9 Hypothyroidism, unspecified; I69.398 Other sequelae of cerebral infarction; Z79.82 Long term (current) use of aspirin; Z79.4 Long term (current) use of insulin
CPT/HCPCS: 33207; 36415; 71045; 80048; 80053; 80162; 82550; 82553; 82948; 83036; 83880; 84443; 84484; 85025; 85610; 85730; 93005; 93306; 96360; 96372; 97139; 99152; 99153; 99251; 99284; C1769; C1786; C1898; G0378; J0690; J1580; J1650; J1817; J2250; J3010; J3370; J7030; J7050; U0002

== ENCOUNTER 2022-04-14 19:29 | Inpatient (IN) | payer MEDICARE ==
[~2022-04-14] VITALS: Ht 157.5 cm; Wt 79.8 kg
[2022-04-14] MEDS ORDERED: DEXTROSE 50% SYRINGE 50 ML IV STA (20:11)
[2022-04-14 20:51] LABS: BASOPHILS % 0.3 % (0.0-1.0); EOSINOPHILS # (AUTO) 0.1 (0.0-0.4); EOSINOPHILS % 0.5 % (0.0-6.0); HEMATOCRIT 43.8 % (34.2-44.1); HEMOGLOBIN 14.9 g/dL (12.0-16.0); LYMPHOCYTES # (AUTO) 1.6 (1.0-3.2); LYMPHOCYTES % 14.9 % (18.0-39.1); MEAN CORPUSCULAR HEMOGLOBIN 32.1 pg (28-32); MEAN CORPUSCULAR VOLUME 94.4 fL (81-99); MONOCYTES # (AUTO) 0.5 (0.2-0.8); MONOCYTES % 4.9 % (4.4-11.3); NEUTROPHILS # (AUTO) 8.3 (2.1-6.9); NEUTROPHILS % 78.9 % (38.7-80.0); PLATELET COUNT 183 x10e3/uL (140-360); RED BLOOD COUNT 4.64 x10e6/uL (3.6-5.1); RED CELL DISTRIBUTION WIDTH 15.5 % (11.7-14.4)
[2022-04-14 21:08] LABS: ALBUMIN 2.8 g/dL (3.5-5.0); ALBUMIN/GLOBULIN RATIO 0.7 (0.8-2.0); ANION GAP 17.6 mmol/L (8-16); CREATININE, SERUM 1.41 mg/dL (0.57-1.11); POTASSIUM 3.6 mmol/L (3.5-5.1)
[2022-04-14] MEDS ORDERED: SODIUM CHLORIDE 0.9% 1000ML 1,000 ML IV ONE (22:15)
[2022-04-14] MEDS ORDERED: ONDANSETRON HCL INJ 2MG/ML 2ML 2 MG/ML VIAL IV PRN (23:00)
[2022-04-14] MEDS ORDERED: SODIUM CHLORIDE 0.9% 1000ML 1,000 ML IV SCH (23:00)
[2022-04-15] MEDS ORDERED: SODIUM CHLORIDE 0.9% 1000ML 1,000 ML IV ONE (01:30)
[2022-04-15] MEDS ORDERED: ALBUMIN 25% 25GM 100ML 0.25 GM/ML BTL IV ONE (03:45)
[2022-04-15] MEDS ORDERED: ALBUMIN 25% 25GM 100ML 100 ML ONE (03:54)
[2022-04-15 05:46] LABS: BASOPHILS % 0.3 % (0.0-1.0); EOSINOPHILS # (AUTO) 0.2 (0.0-0.4); EOSINOPHILS % 2.4 % (0.0-6.0); HEMATOCRIT 35.4 % (34.2-44.1); HEMOGLOBIN 12.1 g/dL (12.0-16.0); LYMPHOCYTES # (AUTO) 2.3 (1.0-3.2); LYMPHOCYTES % 25.9 % (18.0-39.1); MEAN CORPUSCULAR HEMOGLOBIN 32.2 pg (28-32); MEAN CORPUSCULAR HGB CONC 34.2 g/dL (31-35); MEAN CORPUSCULAR VOLUME 94.1 fL (81-99); MONOCYTES # (AUTO) 0.9 (0.2-0.8); MONOCYTES % 10.2 % (4.4-11.3); NEUTROPHILS # (AUTO) 5.4 (2.1-6.9); NEUTROPHILS % 60.6 % (38.7-80.0); PLATELET COUNT 139 x10e3/uL (140-360); RED BLOOD COUNT 3.76 x10e6/uL (3.6-5.1); RED CELL DISTRIBUTION WIDTH 15.6 % (11.7-14.4)
[2022-04-15 06:02] LABS: ANION GAP 17.1 mmol/L (8-16); CALCIUM 7.9 mg/dL (8.4-10.2); CREATININE, SERUM 1.02 mg/dL (0.57-1.11); POTASSIUM 3.1 mmol/L (3.5-5.1)
[2022-04-15 06:10] LABS: CLARITY,URINE CLEAR (CLEAR); COLOR,URINE YELLOW (YELLOW); LEUKOCYTE ESTERASE ,URINE NEGATIVE (NEGATIVE); NITRITE,URINE NEGATIVE (NEGATIVE); PROTEIN,URINE DIPSTICK NEGATIVE (NEGATIVE)
[2022-04-15 06:11] LABS: KETONES,URINE NEGATIVE (NEGATIVE); URINE UROBILINOGEN 0.2 mg/dL (0.2 - 1)
[2022-04-15 06:14] LABS: BACTERIA,URINE FEW /HPF; EPITHELIAL CELLS,URINE FEW /LPF; RBC,URINE 0-5 /HPF (0-5); WBC,URINE (MAN) 0-5 /HPF (0-5)
[2022-04-15] MEDS ORDERED: POTASSIUM CHLORIDE 20 MEQ TAB CR PO STA (06:24)
[2022-04-15] MEDS ORDERED: DEXTROSE 50% SYRINGE 50 ML IV PRN ×2 (06:30→14:00)
[2022-04-15] MEDS ORDERED: POTASSIUM CHLORIDE 20 MEQ TAB CR PO ONE (06:39)
[2022-04-15 10:00] VITALS: BP 132/88
[2022-04-15 11:15] VITALS: BP 119/41
[2022-04-15 11:30] VITALS: BP 119/41
[2022-04-15] MEDS ORDERED: HYDRALAZINE HCL10 MG PO (11:54)
[2022-04-15] MEDS ORDERED: TYLENOL325 MG PO (11:54)
[2022-04-15] MEDS ORDERED: ANUSOL-HC30 GM RC (11:54)
[2022-04-15] MEDS ORDERED: WARFARIN SODIU2.5 MG PO (11:54)
[2022-04-15] MEDS ORDERED: BENAZEPRIL-HCT1 EAC2 PO (11:54)
[2022-04-15] MEDS ORDERED: ACETAMIN-CODE12.5 ML PO (11:54)
[2022-04-15] MEDS ORDERED: LEVEMIR FL100 UNIT/1 SC ×2 (11:54)
[2022-04-15] MEDS ORDERED: TOPROL XL100 MG PO (11:54)
[2022-04-15] MEDS ORDERED: METOPROLOL TART50 MG PO (11:54)
[2022-04-15] MEDS ORDERED: LACTULOSE20 GM/30 M PO (11:54)
[2022-04-15] MEDS: DEXTROSE 5%/0.9% SOD CHL 1,000 ML IV SCH (12:09)
[2022-04-15] MEDS ORDERED: SENNOSIDES 8.6 MG TAB PO PRN (13:45)
[2022-04-15] MEDS ORDERED: ACETAMINOPHEN/CODEINE 300MG - 30MG TAB PO PRN (13:45)
[2022-04-15] MEDS ORDERED: NON-FORMULARY MEDICATION (Fluticasone Propionate* (Flonase Allergy Relief*) 2 EACH) INH PRN (13:45)
[2022-04-15] MEDS ORDERED: WARFARIN SOD 2.5 MG TAB PO SCH ×2 (13:45→17:00)
[2022-04-15] MEDS ORDERED: LACTULOSE SYRUP 20 GM/30 ML UDC PO PRN (13:45)
[2022-04-15] MEDS ORDERED: FLUTICASONE PROPIONATE NASAL SPRAY NS PRN (14:00)
[2022-04-15 14:53] LABS: INR 5.04
[2022-04-15 14:54] LABS: PARTIAL THROMBOPLASTIN TIME 51.7 seconds (23.8-35.5)
[2022-04-15 14:59] LABS: PROTHROMBIN TIME 49.9 seconds (11.9-14.5)
[2022-04-15] MEDS ORDERED: THIAMINE HCL INJ 100 MG/ML 2ML VIAL IV ONE (15:00)
[2022-04-15 15:43] VITALS: BP 144/32
[2022-04-15] MEDS: DEPAKOTE DELAYED-RELEASE TAB 500 MG PO SCH (17:18)
[2022-04-15] MEDS: METOPROLOL TARTRATE 50 MG TAB PO SCH (17:20)
[2022-04-15] MEDS: DONEPEZIL HCL 5 MG TAB PO SCH (20:32)
[2022-04-15] MEDS: ATORVASTATIN 40 MG TAB PO SCH (20:33)
[2022-04-15 20:43] VITALS: BP 140/42
[2022-04-15 21:00] VITALS: BP 140/42
[2022-04-16] VITALS (8 sets, daily range): BP systolic 146–179; BP diastolic 40–63
[2022-04-16] MEDS ORDERED: PHYTONADIONE 10 MG/ML AMP SC STA (03:49)
[2022-04-16] MEDS ORDERED: PHYTONADIONE IV ONE (04:30)
[2022-04-16] MEDS ORDERED: SODIUM CHLORIDE 0.9% IV ONE (04:30)
[2022-04-16] MEDS: DEXTROSE 5%/0.9% SOD CHL 1,000 ML IV SCH ×2 (04:43→20:42)
[2022-04-16] MEDS: LEVOTHYROXINE SODIUM 88 MCG TAB PO SCH (05:24)
[2022-04-16 07:04] LABS: INR 3.07; PROTHROMBIN TIME 33.9 seconds (11.9-14.5)
[2022-04-16 08:28] LABS: MAGNESIUM 1.7 MG/DL (1.3-2.1)
[2022-04-16 08:42] LABS: THYROID STIMULATING HORMONE 2.596 uIU/mL (0.350-4.940)
[2022-04-16] MEDS: METOPROLOL TARTRATE 50 MG TAB PO SCH ×2 (09:10→16:46)
[2022-04-16] MEDS: DEPAKOTE DELAYED-RELEASE TAB 500 MG PO SCH ×2 (09:10→16:45)
[2022-04-16] MEDS: THIAMINE HCL 100 MG TAB PO SCH (09:11)
[2022-04-16] MEDS: DILTIAZEM HCL 180 MG CAP ER PO SCH (09:11)
[2022-04-16] MEDS: DULOXETINE HCL 30 MG DELAYED RELEASE PO SCH (09:11)
[2022-04-16] MEDS: MULTIVITAMINS/MINERALS TAB PO SCH (09:11)
[2022-04-16] MEDS: DIGOXIN 0.125 MG TAB PO SCH (09:11)
[2022-04-16] MEDS: DICYCLOMINE HCL 10 MG CAP PO SCH ×3 (09:11→20:42)
[2022-04-16] MEDS: ASPIRIN 81 MG CHEW TAB PO SCH (09:11)
[2022-04-16] MEDS: PANTOPRAZOLE SOD 40 MG TABEC PO SCH (09:11)
[2022-04-16] MEDS: FUROSEMIDE 20 MG TAB PO SCH (09:12)
[2022-04-16 15:40] LABS: FREE T4 (FREE THYROXINE) 1.18 ng/dL (0.8-1.8); THYROID STIMULATING HORMONE 4.151 uIU/mL (0.350-4.940)
[2022-04-16] MEDS: INSULIN LISPRO 100 UNIT/1 ML 3ML VIAL SQ SCH ×2 (16:41→20:49)
[2022-04-16] MEDS ORDERED: WARFARIN SOD 5 MG TAB PO SCH (17:00)
[2022-04-16 17:53] LABS: AMPHETAMINES SCREEN,URINE NEGATIVE (NEGATIVE); PHENCYCLIDINE SCREEN,URINE NEGATIVE (NEGATIVE)
[2022-04-16 17:54] LABS: BENZODIAZEPINES SCREEN,URINE NEGATIVE (NEGATIVE)
[2022-04-16] MEDS: DONEPEZIL HCL 5 MG TAB PO SCH (20:42)
[2022-04-16] MEDS: ATORVASTATIN 40 MG TAB PO SCH (20:43)
[2022-04-17] VITALS (8 sets, daily range): BP systolic 116–166; BP diastolic 42–66
[2022-04-17] MEDS: LEVOTHYROXINE SODIUM 88 MCG TAB PO SCH (05:36)
[2022-04-17 06:29] LABS: INR 0.93; PROTHROMBIN TIME 13.3 seconds (11.9-14.5)
[2022-04-17] MEDS: INSULIN LISPRO 100 UNIT/1 ML 3ML VIAL SQ SCH ×4 (07:30→21:00)
[2022-04-17] MEDS: ASPIRIN 81 MG CHEW TAB PO SCH (08:33)
[2022-04-17] MEDS: DILTIAZEM HCL 180 MG CAP ER PO SCH (08:34)
[2022-04-17] MEDS: DIGOXIN 0.125 MG TAB PO SCH (08:34)
[2022-04-17] MEDS: DICYCLOMINE HCL 10 MG CAP PO SCH ×3 (08:34→21:00)
[2022-04-17] MEDS: DULOXETINE HCL 30 MG DELAYED RELEASE PO SCH (08:34)
[2022-04-17] MEDS: FUROSEMIDE 20 MG TAB PO SCH (08:34)
[2022-04-17] MEDS: THIAMINE HCL 100 MG TAB PO SCH (08:35)
[2022-04-17] MEDS: METOPROLOL TARTRATE 50 MG TAB PO SCH ×2 (08:35→16:29)
[2022-04-17] MEDS: MULTIVITAMINS/MINERALS TAB PO SCH (08:35)
[2022-04-17] MEDS: DEPAKOTE DELAYED-RELEASE TAB 500 MG PO SCH ×2 (08:35→16:28)
[2022-04-17] MEDS: PANTOPRAZOLE SOD 40 MG TABEC PO SCH (08:36)
[2022-04-17] MEDS: DEXTROSE 5%/0.9% SOD CHL 1,000 ML IV SCH ×2 (11:56→14:28)
[2022-04-17] MEDS ORDERED: BENAZEPRIL HCL 10 MG TAB PO NR (14:45)
[2022-04-17] MEDS: WARFARIN SOD 2 MG TAB PO SCH (17:24)
[2022-04-17] MEDS ORDERED: INSULIN GLARGINE 100 UNITS/ML VIAL SQ SCH (21:00)
[2022-04-17] MEDS: DONEPEZIL HCL 5 MG TAB PO SCH (21:00)
[2022-04-17] MEDS ORDERED: ENOXAPARIN INJ 80 MG/0.8 ML SYR SC SCH (21:00)
[2022-04-17] MEDS: ATORVASTATIN 40 MG TAB PO SCH (21:00)
[2022-04-18] VITALS (7 sets, daily range): BP systolic 133–158; BP diastolic 42–53
[2022-04-18] MEDS: LEVOTHYROXINE SODIUM 88 MCG TAB PO SCH (05:33)
[2022-04-18] MEDS: INSULIN LISPRO 100 UNIT/1 ML 3ML VIAL SQ SCH ×5 (08:27→21:40)
[2022-04-18] MEDS: THIAMINE HCL 100 MG TAB PO SCH (08:28)
[2022-04-18] MEDS: DICYCLOMINE HCL 10 MG CAP PO SCH ×3 (08:28→21:26)
[2022-04-18] MEDS: HYDROCHLOROTHIAZIDE 25 MG TAB PO SCH (08:28)
[2022-04-18] MEDS: PANTOPRAZOLE SOD 40 MG TABEC PO SCH (08:28)
[2022-04-18] MEDS: MULTIVITAMINS/MINERALS TAB PO SCH (08:28)
[2022-04-18] MEDS: DEPAKOTE DELAYED-RELEASE TAB 500 MG PO SCH ×2 (08:28→17:17)
[2022-04-18] MEDS: ASPIRIN 81 MG CHEW TAB PO SCH (08:28)
[2022-04-18] MEDS: METOPROLOL TARTRATE 50 MG TAB PO SCH ×2 (08:29→17:16)
[2022-04-18] MEDS: BENAZEPRIL HCL 10 MG TAB PO SCH (08:29)
[2022-04-18] MEDS: DULOXETINE HCL 30 MG DELAYED RELEASE PO SCH (08:30)
[2022-04-18] MEDS: FUROSEMIDE 20 MG TAB PO SCH (08:30)
[2022-04-18] MEDS: DIGOXIN 0.125 MG TAB PO SCH (08:30)
[2022-04-18] MEDS: DILTIAZEM HCL 180 MG CAP ER PO SCH (08:30)
[2022-04-18] MEDS ORDERED: SODIUM CHLORIDE 0.9% 500ML 500 ML IV ONE (10:45)
[2022-04-18] MEDS ORDERED: IOPAMIDOL 370 MG/ML 100 ML INFUS..BTL INJ ONE (11:11)
[2022-04-18] MEDS ORDERED: SODIUM CHLORIDE 0.9% 250ML 250 ML ONE (11:11)
[2022-04-18] MEDS: DEXTROSE 5%/0.9% SOD CHL 1,000 ML IV SCH (15:06)
[2022-04-18] MEDS: WARFARIN SOD 2 MG TAB PO SCH (17:30)
[2022-04-18] MEDS ORDERED: FUROSEMIDE 20 MG TAB PO ONE (19:30)
[2022-04-18] MEDS ORDERED: INSULIN GLARGINE 100 UNITS/ML VIAL SQ SCH (21:00)
[2022-04-18] MEDS: DONEPEZIL HCL 5 MG TAB PO SCH (21:26)
[2022-04-18] MEDS: ATORVASTATIN 40 MG TAB PO SCH (21:26)
[2022-04-19] VITALS (7 sets, daily range): BP systolic 126–142; BP diastolic 38–66
[2022-04-19] MEDS: LEVOTHYROXINE SODIUM 88 MCG TAB PO SCH (05:42)
[2022-04-19] MEDS: THIAMINE HCL 100 MG TAB PO SCH (08:21)
[2022-04-19] MEDS: FUROSEMIDE 20 MG TAB PO SCH (08:21)
[2022-04-19] MEDS: DILTIAZEM HCL 180 MG CAP ER PO SCH (08:22)
[2022-04-19] MEDS: PANTOPRAZOLE SOD 40 MG TABEC PO SCH (08:22)
[2022-04-19] MEDS: MULTIVITAMINS/MINERALS TAB PO SCH (08:22)
[2022-04-19] MEDS: DICYCLOMINE HCL 10 MG CAP PO SCH ×3 (08:22→21:03)
[2022-04-19] MEDS: DIGOXIN 0.125 MG TAB PO SCH (08:22)
[2022-04-19] MEDS: DULOXETINE HCL 30 MG DELAYED RELEASE PO SCH (08:23)
[2022-04-19] MEDS: ASPIRIN 81 MG CHEW TAB PO SCH (08:23)
[2022-04-19] MEDS: DEPAKOTE DELAYED-RELEASE TAB 500 MG PO SCH ×2 (08:23→17:29)
[2022-04-19] MEDS: HYDROCHLOROTHIAZIDE 25 MG TAB PO SCH (08:23)
[2022-04-19] MEDS: BENAZEPRIL HCL 10 MG TAB PO SCH (08:25)
[2022-04-19] MEDS: INSULIN LISPRO 100 UNIT/1 ML 3ML VIAL SQ SCH ×7 (08:41→21:00)
[2022-04-19] MEDS: METOPROLOL TARTRATE 50 MG TAB PO SCH ×2 (09:00→17:00)
[2022-04-19 10:24] LABS: PROTHROMBIN TIME 14.1 seconds (11.9-14.5)
[2022-04-19] MEDS ORDERED: INSULIN GLARGINE 100 UNITS/ML VIAL SQ SCH (21:00)
[2022-04-19] MEDS: ATORVASTATIN 40 MG TAB PO SCH (21:04)
[2022-04-19] MEDS: DONEPEZIL HCL 5 MG TAB PO SCH (21:14)
[2022-04-20] VITALS (8 sets, daily range): BP systolic 109–160; BP diastolic 40–77
[2022-04-20] MEDS ORDERED: DICYCLOMINE HCL 10 MG CAP PO PRN (02:30)
[2022-04-20] MEDS: LEVOTHYROXINE SODIUM 88 MCG TAB PO SCH (06:00)
[2022-04-20] MEDS: DILTIAZEM HCL 180 MG CAP ER PO SCH (09:17)
[2022-04-20] MEDS: DIGOXIN 0.125 MG TAB PO SCH (09:17)
[2022-04-20] MEDS: HYDROCHLOROTHIAZIDE 25 MG TAB PO SCH (09:17)
[2022-04-20] MEDS: DULOXETINE HCL 30 MG DELAYED RELEASE PO SCH (09:18)
[2022-04-20] MEDS: THIAMINE HCL 100 MG TAB PO SCH (09:18)
[2022-04-20] MEDS: PANTOPRAZOLE SOD 40 MG TABEC PO SCH (09:18)
[2022-04-20] MEDS: BENAZEPRIL HCL 10 MG TAB PO SCH (09:18)
[2022-04-20] MEDS: DEPAKOTE DELAYED-RELEASE TAB 500 MG PO SCH ×2 (09:19→17:12)
[2022-04-20] MEDS: METOPROLOL TARTRATE 50 MG TAB PO SCH ×2 (09:19→17:11)
[2022-04-20] MEDS: FUROSEMIDE 20 MG TAB PO SCH (09:19)
[2022-04-20] MEDS: ASPIRIN 81 MG CHEW TAB PO SCH (09:19)
[2022-04-20] MEDS: MULTIVITAMINS/MINERALS TAB PO SCH (09:19)
[2022-04-20] MEDS: INSULIN LISPRO 100 UNIT/1 ML 3ML VIAL SQ SCH ×7 (09:21→21:00)
[2022-04-20 10:17] LABS: INR 1.02; PROTHROMBIN TIME 14.3 seconds (11.9-14.5)
[2022-04-20] MEDS ORDERED: NOVOLOG100 UNIT/1 SC (12:12)
[2022-04-20] MEDS ORDERED: WARFARIN SODIUM2 MG PO (12:12)
[2022-04-20] MEDS ORDERED: LEVEMIR FL100 UNIT/1 SC (12:12)
[2022-04-20] MEDS: WARFARIN SOD 2 MG TAB PO SCH (17:12)
[2022-04-20] MEDS: DONEPEZIL HCL 5 MG TAB PO SCH (21:03)
[2022-04-20] MEDS: ATORVASTATIN 40 MG TAB PO SCH (21:04)
[2022-04-20] MEDS: INSULIN GLARGINE 100 UNITS/ML VIAL SQ SCH (21:09)
[2022-04-21] VITALS (8 sets, daily range): BP systolic 120–153; BP diastolic 40–60
[2022-04-21] MEDS: LEVOTHYROXINE SODIUM 88 MCG TAB PO SCH (05:52)
[2022-04-21] MEDS: DIGOXIN 0.125 MG TAB PO SCH (09:00)
[2022-04-21] MEDS: METOPROLOL TARTRATE 50 MG TAB PO SCH ×2 (09:00→16:31)
[2022-04-21] MEDS: BENAZEPRIL HCL 10 MG TAB PO SCH (09:00)
[2022-04-21] MEDS: DILTIAZEM HCL 180 MG CAP ER PO SCH (09:23)
[2022-04-21] MEDS: DULOXETINE HCL 30 MG DELAYED RELEASE PO SCH (09:23)
[2022-04-21] MEDS: ASPIRIN 81 MG CHEW TAB PO SCH (09:23)
[2022-04-21] MEDS: DEPAKOTE DELAYED-RELEASE TAB 500 MG PO SCH ×2 (09:24→16:27)
[2022-04-21] MEDS: HYDROCHLOROTHIAZIDE 25 MG TAB PO SCH (09:24)
[2022-04-21] MEDS: MULTIVITAMINS/MINERALS TAB PO SCH (09:25)
[2022-04-21] MEDS: THIAMINE HCL 100 MG TAB PO SCH (09:25)
[2022-04-21] MEDS: PANTOPRAZOLE SOD 40 MG TABEC PO SCH (09:25)
[2022-04-21] MEDS: FUROSEMIDE 20 MG TAB PO SCH (09:25)
[2022-04-21] MEDS: INSULIN LISPRO 100 UNIT/1 ML 3ML VIAL SQ SCH ×7 (09:41→21:00)
[2022-04-21 10:36] LABS: INR 1.11; PROTHROMBIN TIME 15.3 seconds (11.9-14.5)
[2022-04-21] MEDS ORDERED: ONDANSETRON HCL 4 MG ORAL DISINTEGRATING TAB PO PRN (14:00)
[2022-04-21] MEDS: WARFARIN SOD 2 MG TAB PO SCH (16:27)
[2022-04-21] MEDS: DONEPEZIL HCL 5 MG TAB PO SCH (21:22)
[2022-04-21] MEDS: INSULIN GLARGINE 100 UNITS/ML VIAL SQ SCH (21:22)
[2022-04-21] MEDS: ATORVASTATIN 40 MG TAB PO SCH (21:22)
[2022-04-22 00:02] VITALS: BP 128/46
[2022-04-22 04:00] VITALS: BP 153/65
[2022-04-22] MEDS: LEVOTHYROXINE SODIUM 88 MCG TAB PO SCH (05:51)
[2022-04-22 07:59] VITALS: BP 167/45
[2022-04-22 08:07] VITALS: BP 167/45
[2022-04-22] MEDS: INSULIN LISPRO 100 UNIT/1 ML 3ML VIAL SQ SCH ×4 (09:31→12:16)
[2022-04-22] MEDS: ASPIRIN 81 MG CHEW TAB PO SCH (09:32)
[2022-04-22] MEDS: DEPAKOTE DELAYED-RELEASE TAB 500 MG PO SCH (09:33)
[2022-04-22] MEDS: DILTIAZEM HCL 180 MG CAP ER PO SCH (09:33)
[2022-04-22] MEDS: HYDROCHLOROTHIAZIDE 25 MG TAB PO SCH (09:33)
[2022-04-22] MEDS: DULOXETINE HCL 30 MG DELAYED RELEASE PO SCH (09:33)
[2022-04-22] MEDS: THIAMINE HCL 100 MG TAB PO SCH (09:34)
[2022-04-22] MEDS: DIGOXIN 0.125 MG TAB PO SCH (09:34)
[2022-04-22] MEDS: MULTIVITAMINS/MINERALS TAB PO SCH (09:34)
[2022-04-22] MEDS: FUROSEMIDE 20 MG TAB PO SCH (09:34)
[2022-04-22] MEDS: PANTOPRAZOLE SOD 40 MG TABEC PO SCH (09:34)
[2022-04-22] MEDS: BENAZEPRIL HCL 10 MG TAB PO SCH (09:35)
[2022-04-22] MEDS: METOPROLOL TARTRATE 50 MG TAB PO SCH (09:35)
[2022-04-22 10:29] LABS: INR 1.33; PROTHROMBIN TIME 17.6 seconds (11.9-14.5)
[2022-04-22 11:45] VITALS: BP 159/46
== END 2022-04-22 12:51 | DRG 641 ==
LOC: ER 20:13 → ERHOLD 22:58 → MED/SURG3 04-15 08:50 → OBSVTOIN 04-16 13:22
PROVIDERS: ADMIT Internal Medicine; ATTEND Internal Medicine
PROC: 02HV33Z Insertion of Infusion Device into Superior Vena Cava, Percutaneous Approach (ICD-10-PCS; principal; 2022-04-16)
DX: E16.2 Hypoglycemia, unspecified (principal); D68.32 Hemorrhagic disorder due to extrinsic circulating anticoagulants; I69.351 Hemiplegia and hemiparesis following cerebral infarction affecting right dominant side; N17.9 Acute kidney failure, unspecified; K92.2 Gastrointestinal hemorrhage, unspecified; I48.92 Unspecified atrial flutter; E87.8 Other disorders of electrolyte and fluid balance, not elsewhere classified; D69.6 Thrombocytopenia, unspecified; E87.6 Hypokalemia; E83.51 Hypocalcemia; E88.09 Other disorders of plasma-protein metabolism, not elsewhere classified; E11.69 Type 2 diabetes mellitus with other specified complication; Z79.899 Other long term (current) drug therapy; E78.49 Other hyperlipidemia; Z79.01 Long term (current) use of anticoagulants; Z95.2 Presence of prosthetic heart valve; I25.10 Atherosclerotic heart disease of native coronary artery without angina pectoris; Z95.1 Presence of aortocoronary bypass graft; E03.9 Hypothyroidism, unspecified; K52.9 Noninfective gastroenteritis and colitis, unspecified; R31.0 Gross hematuria; T45.515A Adverse effect of anticoagulants, initial encounter; I48.91 Unspecified atrial fibrillation; R15.9 Full incontinence of feces; I69.320 Aphasia following cerebral infarction; E11.65 Type 2 diabetes mellitus with hyperglycemia
CPT/HCPCS: 0223U; 36415; 36569; 70450; 71045; 74178; 76857; 80048; 80053; 80307; 81001; 82533; 82607; 82746; 82948; 83036; 83735; 83993; 84439; 84443; 85025; 85610; 85730; 86592; 87045; 87177; 87493; 97139; 99251; 99284; G0378; J3411; J3430; J7030; J7040; J7042; J7050; J7799; P9047; Q9967